=== PATIENT | male | born 1980 | race Caucasian/White ===

== ENCOUNTER → 2018-12-22 09:16 | Outpatient (CLI) | payer MEDICAID, SELFPAY ==
--- NOTE | 2018-12-22 09:20 | XR_ITS ---
PROCEDURE: XR SHOULDER RT MIN 2V CLINICAL INDICATION: right shoulder pain COMPARISON: No exams were available for comparison FINDINGS: No fracture, dislocation, lytic change, or blastic change evident. No significant degenerative change IMPRESSION: No acute findings. Dictated by: Adan Velez MD 12/22/2018 09:44 Signed by: <Electronically signed by Adan Velez MD in [place]> 12/22/2018 09:46
== END ==
PROVIDERS: PCP Internal Medicine Adolescent Medicine; Visit Provider Orthopaedic Surgery
DX: M25.511 Pain in right shoulder (principal)
CPT/HCPCS: 73030

== ENCOUNTER → 2018-12-28 08:27 | Outpatient (CLI) | payer MEDICAID, SELFPAY ==
--- NOTE | 2018-12-28 08:29 | MR_ITS ---
PROCEDURE: MR SHOULDER RT WO CON CLINICAL INDICATION: shoulder injury Right shoulder pain with palpable abnormality along superior aspect of the shoulder the COMPARISON: XR SHOULDER RT MIN 2V from 12/22/2018 TECHNIQUE: Routine multiplanar multi echo sequences are performed without gadolinium enhancement. FINDINGS: There is an abnormal oval area of signal intensity in the subcutaneous tissues along the superior and posterior aspect of the shoulder.. This is just along the superior and posterior aspect of the a chromium superficial to the deltoid muscle. This has heterogeneous increased T1 and increased T2 signal corresponding to the palpable abnormality measuring 4 cm longitudinal and 1.5 cm deep and 4 cm anterior to posterior. The muscle plane is preserved the. This maintains increased T2 signal on the STIR images. The margins are somewhat ill-defined. There is a type 2 acromion with subacromial stenosis. There is thickening of the supraspinatus tendon with increased T2 signal distally consistent with tendinopathy/tendinosis. The infraspinatus, subscapularis, and teres minor tendons are intact. Glenoid labrum has an unremarkable appearance. There is a small amount of fluid in the anterior aspect of the shoulder joint. The bicipital tendon is in place. No bony abnormalities are evident. IMPRESSION: 1. Ill-defined soft tissue mass in the subcutaneous tissues posterior to the distal and posterior aspect of the a chromium. Signal characteristics are more typical for hemorrhage with increased T1 and increased T2 signal. This does not demonstrate fat suppression. Follow-up is recommended. A neoplastic process such as a liposarcoma is felt to be less likely but not totally excluded. If this does not resolve then, fine needle aspiration could be performed with ultrasound guidance for cytologic diagnosis 2. Tendinopathy/tendinosis of the supraspinatus tendon with subacromial stenosis and type 2 acromion Dictated by: Adan Velez MD 12/30/2018 11:44 Signed by: <Electronically signed by Adan Velez MD in [place]> 12/30/2018 11:44
== END ==
PROVIDERS: PCP Internal Medicine Adolescent Medicine; Visit Provider Orthopaedic Surgery
DX: S46.009A Unspecified injury of muscle(s) and tendon(s) of the rotator cuff of unspecified shoulder, initial encounter (principal)
CPT/HCPCS: 73221

== ENCOUNTER → 2019-01-12 08:58 | Outpatient (CLI) | payer MEDICAID, SELFPAY ==
--- NOTE | 2019-01-12 09:00 | US_ITS ---
PROCEDURE: US BIOPSY GUIDANCE CLINICAL INDICATION: mass Right shoulder mass COMPARISON: MR SHOULDER RT WO CON from 12/28/2018 FINDINGS: Technique: Following obtaining informed consent under aseptic conditions and local anesthesia with 1 percent buffered lidocaine 3 passes were made into the right shoulder mass with sonographic guidance with a 21 gauge needle. Specimen was given to cytology. The patient tolerated the procedure well without evidence of immediate complication. Cytology: Negative for malignant cells. Wallace adipocytes present consistent with lipoma IMPRESSION: Uneventful ultrasound-guided fine needle aspiration of right shoulder mass consistent with a lipoma Dictated by: Adan Velez MD 01/14/2019 12:45 Electronically signed by Adan Velez MD in [place] 01/18/2019 12:00
== END ==
PROVIDERS: PCP Internal Medicine Adolescent Medicine; Visit Provider Orthopaedic Surgery
DX: D17.1 Benign lipomatous neoplasm of skin and subcutaneous tissue of trunk (principal); M25.511 Pain in right shoulder; M79.89 Other specified soft tissue disorders
CPT/HCPCS: 10005; 76942

== ENCOUNTER → 2019-05-17 16:38 | Outpatient (CLI) | payer OTHER, SELFPAY ==
[2019-05-17 17:04] LABS: Basophils % 0.6 % (0.1-2.0); Eosinophils # 0.2 K/mm3 (0.0-0.4); Eosinophils % 2.7 % (0.1-12.0); Hematocrit 48.3 % (42.0-52.0); Hemoglobin 16.5 g/dL (14.1-18.0); Lymphocytes # 2.1 K/mm3 (0.7-4.5); Mean Corpuscular HGB Conc 34.1 g/dL (31.8-35.4); Mean Corpuscular Hemoglobin 28.7 pg (27.0-31.2); Mean Corpuscular Volume 84.1 fl (80-94); Mean Platelet Volume 7.2 fl (7.4-10.4); Monocytes # 0.6 K/mm3 (0.1-1.0); Monocytes % 9.5 % (1.7-9.3); Neutrophils # 3.3 K/mm3 (1.8-7.8); Neutrophils % 53.2 % (37.0-80.0); Platelet Count 313 K/mm3 (142-424); Red Blood Count 5.75 M/mm3 (4.60-6.20); Red Cell Distribution Width 13.6 % (11.5-17.5); White Blood Count 6.2 K/mm3 (4.8-10.8)
[2019-05-17 18:17] LABS: Alanine Aminotransferase 45 U/L (12-78); Albumin Level 3.9 gm/dL (3.4-5.0); Albumin/Globulin Ratio 1.3 (1.1-1.8); Alkaline Phosphatase 87 U/L (46-116); Anion Gap 11.7 mEq/L (5-15); Aspartate Amino Transferase 21 U/L (15-37); Bilirubin,Total 0.6 mg/dL (0.2-1.0); Blood Urea Nitrogen 10 mg/dL (7-18); Calcium 8.6 mg/dL (8.5-10.1); Carbon Dioxide 28 mmol/L (21.0-32.0); Chloride 105 mmol/L (98-107); Creatinine,Serum 1.02 mg/dL (0.70-1.30); Estimated Glomerular Filt Rate 81 ml/min (>60); GFR (African American) 98 ML/MIN (>60); Globulin 2.9 gm/dl (1.3-3.2); Glucose 70 mg/dL (74-106); Potassium 3.7 mmoL/L (3.5-5.1); Sodium 141 mmol/L (136-145); Total Protein,Serum 6.8 gm/dL (6.4-8.2); Uric Acid 7.3 mg/dL (2.6-7.2)
== END ==
PROVIDERS: Visit Provider Internal Medicine Adolescent Medicine
DX: M1A.029 Idiopathic chronic gout, unspecified elbow (principal)
CPT/HCPCS: 36415; 80053; 84550; 85025

== ENCOUNTER → 2019-06-15 16:57 | Outpatient (CLI) | payer OTHER, SELFPAY ==
[2019-06-15 18:08] LABS: Uric Acid 5.4 mg/dL (2.6-7.2)
== END ==
PROVIDERS: Visit Provider Internal Medicine Adolescent Medicine
DX: M10.9 Gout, unspecified (principal)
CPT/HCPCS: 36415; 84550

== ENCOUNTER → 2019-08-13 13:03 | Outpatient (CLI) | payer OTHER, SELFPAY ==
--- NOTE | 2019-08-13 13:03 | MR_ITS ---
PROCEDURE: MR KNEE RT WO CON CLINICAL INDICATION: knee injury Lateral and posterior knee pain following injury COMPARISON: XR KNEE RT 3V from 07/23/2019 TECHNIQUE: Routine multiplanar multi echo sequences are performed without gadolinium enhancement. FINDINGS: There is increased T2 signal involving the inferior aspect of the anterior cruciate ligament consistent with sprain or partial tear. PCL appears intact as do the collateral ligaments, patellar tendon, and quadriceps tendon. No obvious meniscal tear. Patellar cartilage appears intact. There is only a small amount of fluid in the knee joint. There is a small area of increased T2 signal involving the posterior aspect of the lateral femoral condyle. IMPRESSION: 1. Partial tear versus sprain of the ACL. 2. Small area of increased T2 signal involves the posterior aspect of the lateral femoral condyle and may be due to small bone bruise. Dictated by: Adan Velez MD 08/14/2019 10:45 Electronically signed by Adan Velez MD in [place] 08/14/2019 10:45
== END ==
PROVIDERS: PCP Internal Medicine Adolescent Medicine; Visit Provider Orthopaedic Surgery
DX: S89.91XA Unspecified injury of right lower leg, initial encounter (principal)
CPT/HCPCS: 73721

== ENCOUNTER 2019-08-30 08:00 | Outpatient (RCR) | payer OTHER, SELFPAY ==
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
== END 2019-08-30 08:05 | disposition home or self-care (01) ==
LOC: PT 08:00
PROVIDERS: Visit Provider Orthopaedic Surgery
DX: S89.91XD Unspecified injury of right lower leg, subsequent encounter (principal); S83.511D Sprain of anterior cruciate ligament of right knee, subsequent encounter; Y99.0 Civilian activity done for income or pay
CPT/HCPCS: 97010; 97014; 97035; 97110; 97163; G0283

== ENCOUNTER 2020-03-05 15:31 | Emergency (ER) | payer OTHER, SELFPAY ==
[2020-03-05 15:58] VITALS: BP 123/81; PULSE 83; RESP 20; TEMP 36.6; O2SAT 99; BMI 30.1
--- NOTE | 2020-03-05 16:13 | HMH.EDUTC ---
[facility] [place] Disposition Clinical Impression: Laceration of left thumb Qualifiers: Encounter type: initial encounter Damage to nail status: without damage Foreign body presence: without foreign body Qualified Code(s): S61.012A - Laceration without foreign body of left thumb without damage to nail, initial encounter Disposition: Home, Self-Care Condition on Discharge: Good Instructions: How to Care for a Laceration After Repair, DI for Laceration Repair -- Simple Additional Instructions: Keep the wound clean and dry. Keep a dressing on it if you are going to be getting it dirty. Watch the for signs of infection, such as redness, swelling, drainage, fever. etc. Take tylenol or ibuprofen for pain. Follow up with your regular doctor. Return in 10 days to have the sutures removed. GO TO THE ER FOR ANY WORSENING SYMPTOMS OR CONCERNS. Prescriptions: cephALEXin [Keflex 500mg Cap] 500 mg PO Q6H 7 Days #28 cap Transmission Status: Received by [id number] Referrals: Olayinka Miguel MD [Primary Care Provider] - Time of Disposition: 16:56 Medical Decision Making - Medical Records Medical records reviewed: No: I reviewed the patient's medical records. - Juancarlos Inquiry Pt receiving controlled substance: No Vital Signs: 03/05/20 15:58 03/05/20 16:58 Temperature 97.9 F 97.9 F Temperature Source Oral Pulse Rate 83 Pulse Rate [Right Brachial] 83 Respiratory Rate 20 20 Blood Pressure 123/81 Blood Pressure [Right Arm] 123/81 Blood Pressure Mean [Right Arm] 95 Blood Pressure Source [Right Arm] Automatic Cuff Blood Pressure Position [Right Arm] Sitting 02 Sat by Pulse Oximetry 99 Oxygen Delivery Method Room Air Orders (Tests/Meds): ED MEDICATIONS Discontinued Medications Generic Name Dose Route Start Last Admin Trade Name Freq PRN Reason Stop Dose Admin Tetanus/Reduced Diphtheria/Acell Pertussis 0.5 ml 03/05/20 16:03 03/05/20 16:25 Tet/Diphth/Pert-Adult 0.5ml Syringe IM 03/05/20 16:04 0.5 ml .ONCE ONE Administration [facility] [place] HPI - General Stated complaint: AO [id number] @1430 lac to L thumb Time Seen by Provider: 03/05/20 16:13 Mode of Arrival: Ambulatory Source of Information: Patient Limitations: No Limitations Description of Symptoms (Recalled from Triage Doc. 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 UNKNOWN STATUS OF TETANUS VACCINE HEENT Symptoms (Recalled from RN notes): No Resp Symptoms (Recalled from RN notes): No Skin Symptoms (Recalled from RN notes): Yes MS Symptoms (Recalled from RN notes): No Functional Status (Recalled from RN notes): WNL - History of Present Illness Provider Complaint: He states that he was cutting a piece of plastic when the knife slipped and he cut his left thumb. His tetanus immunization is not up to date. - Related Data Home Medications Medication Instructions Recorded Confirmed allopurinol 100 mg tablet 100 mg PO DAILY 08/01/19 03/05/20 indomethacin 50 mg capsule 50 mg PO BID 08/01/19 03/05/20 Previous Rx's Medication Instructions Recorded cephALEXin [Keflex 500mg Cap] 500 mg PO Q6H 7 Days #28 cap 03/05/20 Allergies Allergy/AdvReac Type Severity Reaction Status Date / Time No Known Allergies Allergy Verified 09/25/19 13:39 - Worker's Comp Is this a Worker's Comp case?: No [facility] History - Hepatitis A Screen Drug use history?: No High risk sexual behaviors?: No History of sexually transmitted infection?: No Currently employed?: No Childcare worker?: No Do you have indoor plumbing?: Yes Do you have electricity?: Yes Attestation statement:: This patient has been screened for Hepatitis A risk factors. I have reviewed the patient's past medical history: Yes Medical History: Denies:: Cancer, Diabetes Mellitus Type 1, Diabetes Mellitus Type 2, Hypertension, MRSA Other Medical History: Reports: Other Comment: psoriasis Other [place]
[2020-03-05 16:58] VITALS: BP 123/81; PULSE 83; RESP 20; TEMP 36.6; O2SAT 99
== END 2020-03-05 17:00 | disposition home or self-care (01) ==
PROVIDERS: Emergency Provider Nurse Practitioner Family; PCP Internal Medicine Adolescent Medicine
DX: S61.012A Laceration without foreign body of left thumb without damage to nail, initial encounter (principal); W26.0XXA Contact with knife, initial encounter; Y92.019 Unspecified place in single-family (private) house as the place of occurrence of the external cause; Z23 Encounter for immunization; F17.290 Nicotine dependence, other tobacco product, uncomplicated
CPT/HCPCS: 12001; 90471; 90715; 99201

== ENCOUNTER 2020-05-14 09:04 | Emergency (ER) | payer OTHER, SELFPAY ==
[2020-05-14 09:05] VITALS: BP 134/88; PULSE 93; RESP 14; TEMP 36.6; O2SAT 98; BMI 31.5
--- NOTE | 2020-05-14 09:31 | HMH.EDUTC ---
[facility] [place] Disposition Clinical Impression: Viral syndrome, Exposure to COVID-19 virus Disposition: Home, Self-Care Condition on Discharge: Good Instructions: DI for COVID-19 (Suspected or Confirmed ), Preventing the Spread of Coronavirus Discharge Instructions Additional Instructions: Drink plenty of fluids. Take tylenol for pain or fever. Return if you begin to have difficulty breathing. Follow up with your regular doctor. GO TO THE ER FOR ANY WORSENING SYMPTOMS Prescriptions: Ondansetron [Zofran 4mg ODT] 4 mg PO Q8HP PRN #12 tab.rapdis PRN Reason: Nausea Transmission Status: Received by [facility] # Azithromycin [Z-Prashant 250mg Tab*] 250 mg PO UD DOSE PK #6 tab Transmission Status: Received by [facility] # Referrals: Olayinka Miguel MD [Primary Care Provider] - Forms: Work/School Release Time of Disposition: 09:34 Medical Decision Making - Medical Records Medical records reviewed: No: I reviewed the patient's medical records. - Juancarlos Inquiry Pt receiving controlled substance: No Vital Signs: 05/14/20 09:05 05/14/20 09:40 Temperature 97.9 F 97.9 F Temperature Source Oral Oral Pulse Rate 93 H Pulse Rate [Right] 93 H Respiratory Rate 14 14 Blood Pressure 134/88 Blood Pressure [Right Arm] 134/88 Blood Pressure Mean [Right Arm] 103 02 Sat by Pulse Oximetry 98 Orders (Tests/Meds): ORDERS Category Date Time Status Covid-19 Nasal PCR ([facility]) Routine Lab 05/14/20 09:20 Received [facility] [place] HPI - General Stated complaint: Diarrhea, vomiting Time Seen by Provider: 05/14/20 09:31 Mode of Arrival: Ambulatory Source of Information: Patient Description of Symptoms (Recalled from Triage Doc. by RN): pt c/o fever, diarrhea,chills, fatigue that started last night HEENT Symptoms (Recalled from RN notes): No Resp Symptoms (Recalled from RN notes): No Skin Symptoms (Recalled from RN notes): No MS Symptoms (Recalled from RN notes): No Functional Status (Recalled from RN notes): wnl - History of Present Illness Provider Complaint: He states that for the past 2 days he's had diarrhea, gi upset, and cough. He denies any known exposure to covid, but he states that he has the symptoms of covid-19 and he would like to be tested. - Related Data Home Medications Medication Instructions Recorded Confirmed allopurinol 100 mg tablet 100 mg PO DAILY 08/01/19 03/05/20 indomethacin 50 mg capsule 50 mg PO BID 08/01/19 03/05/20 Previous Rx's Medication Instructions Recorded cephALEXin [Keflex 500mg Cap] 500 mg PO Q6H 7 Days #28 cap 03/05/20 Azithromycin [Z-Prashant 250mg Tab*] 250 mg PO UD DOSE PK #6 tab 05/14/20 Ondansetron [Zofran 4mg ODT] 4 mg PO Q8HP PRN #12 tab.rapdis 05/14/20 Allergies Allergy/AdvReac Type Severity Reaction Status Date / Time No Known Allergies Allergy Verified 05/14/20 09:12 - Worker's Comp Is this a Worker's Comp case?: No Is this an H Worker's Comp?: No Is this a [place] Worker's Comp?: No [facility] History - Hepatitis A Screen Drug use history?: No High risk sexual behaviors?: No History of sexually transmitted infection?: No Currently employed?: No Childcare worker?: No Do you have indoor plumbing?: Yes Do you have electricity?: Yes Attestation statement:: This patient has been screened for Hepatitis A risk factors. I have reviewed the patient's past medical history: Yes Medical History: Denies:: Cancer, Diabetes Mellitus Type 1, Diabetes Mellitus Type 2, Hypertension, MRSA Other Medical History: Reports: Other Comment: psoriasis Other Surgeries: Yes: Appendectomy, Cholecystectomy, Hernia Repair Amputation: No Fractures: No - Social History Smoking Status: Former smoker Tobacco Type: smokeless tobacco # Packs/Day (cigarettes): 0 Alcohol Intake: never Alcohol Intake Frequency:: holidays/special occasions only Occupational Status: other Housing: house Household Members: family Family Hx:: No signific
[2020-05-14 09:40] VITALS: BP 134/88; PULSE 93; RESP 14; TEMP 36.6; O2SAT 98
--- NOTE | 2020-05-14 14:27 | PC.NURSE ---
patient notified of positive covid results
== END 2020-05-14 09:41 | disposition home or self-care (01) ==
PROVIDERS: Emergency Provider Nurse Practitioner Family; PCP Internal Medicine Adolescent Medicine
DX: U07.1 COVID-19 (principal); F17.290 Nicotine dependence, other tobacco product, uncomplicated
CPT/HCPCS: 99202; G0463; U0003

== ENCOUNTER 2020-12-21 20:09 | Emergency (ER) | payer OTHER, SELFPAY ==
[2020-12-21 20:11] VITALS: BP 146/95; PULSE 75; RESP 14; TEMP 36.6; O2SAT 98; BMI 38.8
--- NOTE | 2020-12-21 20:17 | ECG_ITS ---
APPROVED REPORT Exam: Resting ECG HR:79 bpm ECG Measurements Heart Rate 79 AXES OH 158 P 71 QRSd 100 QRS -16 QT 370 T 41 QTc 424 Conclusion Normal sinus rhythm with sinus arrhythmia Normal ECG Electronically signed by : Olayinka Miguel MD 12/24/2020 11:51:20
--- NOTE | 2020-12-21 20:17 | XR_ITS ---
PROCEDURE INFORMATION: Exam: XR Chest Exam date and time: 12/21/2020 8:17 PM Age: 40 years old Clinical indication: Sternal or substernal pain; Patient HX: Chest pain for 2 days. TECHNIQUE: Imaging protocol: XR of the chest. Views: 2 views. COMPARISON: CR XR CHEST PORTABLE 07/23/2019 11:21 PM FINDINGS: Lungs: Unremarkable. No consolidation. Pleural spaces: Unremarkable. No pleural effusion. No pneumothorax. Heart/Mediastinum: Unremarkable. No cardiomegaly. Bones/joints: Unremarkable. IMPRESSION: No acute findings.
[2020-12-21 20:28] LABS: Basophils % 0.6 % (0.1-2.0); Eosinophils # 0.2 K/mm3 (0.0-0.4); Hematocrit 49.7 % (42.0-52.0); Hemoglobin 17.3 g/dL (14.1-18.0); Lymphocytes # 2.1 K/mm3 (0.7-4.5); Lymphocytes % 29.6 % (10-50); Mean Corpuscular HGB Conc 34.9 g/dL (31.8-35.4); Mean Corpuscular Hemoglobin 28.8 pg (27.0-31.2); Mean Corpuscular Volume 82.6 fl (80-94); Mean Platelet Volume 7.1 fl (7.4-10.4); Monocytes # 0.5 K/mm3 (0.1-1.0); Monocytes % 7.6 % (1.7-9.3); Neutrophils # 4.1 K/mm3 (1.8-7.8); Neutrophils % 59.2 % (37.0-80.0); Platelet Count 303 K/mm3 (142-424); Red Blood Count 6.01 M/mm3 (4.60-6.20); Red Cell Distribution Width 14.1 % (11.5-17.5); White Blood Count 6.9 K/mm3 (4.8-10.8)
[2020-12-21 20:34] LABS: Alanine Aminotransferase 37 U/L (12-78); Albumin Level 4.7 g/dl (3.5-5.0); Alkaline Phosphatase 61 U/L (38-126); Anion Gap 14.9 mEq/L (5-15); Aspartate Amino Transferase 40 U/L (17-59); Bilirubin,Direct 0.6 mg/dl (0.0-0.4); Bilirubin,Indirect 0.3 mg/dL (0.0-0.9); Bilirubin,Total 0.9 mg/dl (0.2-1.3); Bilirubin,Unconjugated 0.3 mg/dL (0.0-1.1); Blood Urea Nitrogen 9 mg/dl (9-20); Calcium 8.9 mg/dl (8.4-10.2); Carbon Dioxide 28 mmol/L (22.0-30.0); Chloride 103 mmol/L (98-107); Creatinine Clearance Estimated 195 mL/min (50-200); Estimated Glomerular Filt Rate 107 ml/min (>60); GFR (African American) 130 ML/MIN (>60); Glucose 96 mg/dl (74-100); Potassium 3.9 mmoL/L (3.5-5.1); Sodium 142 mmol/L (136-145); Total Protein,Serum 7.8 g/dl (6.3-8.2)
[2020-12-21 20:39] LABS: C-Reactive Protein 0.8 mg/L (0-4)
[2020-12-21 20:45] LABS: NT Pro Brain Natriuretic Pep. 31.6 pg/mL (0-125)
[2020-12-21 20:53] LABS: T4 (Thyroxine) 11.2 ug/dl (5.53-11.0)
[2020-12-21 20:54] LABS: Procalcitonin 0.047 ng/mL (0.0-2.0)
[2020-12-21 20:57] LABS: Erythrocyte Sedimentation Rate 1 mm/hr (0-15)
[2020-12-21 21:07] LABS: Thyroid Stimulating Hormone 0.56 uIU/mL (0.465-4.68)
--- NOTE | 2020-12-21 21:08 | HMH.EDCP ---
ED Disposition Clinical Impression: Chest pain Qualifiers: Chest pain type: precordial pain Qualified Code(s): R07.2 - Precordial pain Disposition: Home, Self-Care Condition on Discharge: Good Instructions: DI for Atypical Chest Pain Additional Instructions: see card in am [phone] Referrals: Keith Dyer MD [Primary Care Provider] - - Critical Care Critical Care Time: No Attestation: On 12/21/20, the high probability of a clinically significant, sudden or life threatening deterioration of the following system(s) required my full and direct attention, intervention and personal management. The time I documented below is in addition to time spent performing reported procedures but includes the following listed in this critical care notation. Medical Decision Making - Medical Records Medical records reviewed: Yes: I reviewed the patient's medical records. - Juancarlos Inquiry Pt receiving controlled substance: No Vital Signs: 12/21/20 20:11 Temperature 97.8 F Temperature Source Oral Pulse Rate [Right Brachial] 75 Respiratory Rate 14 Blood Pressure [Right Arm] 146/95 H Blood Pressure Mean [Right Arm] 112 Blood Pressure Source [Right Arm] Automatic Cuff Blood Pressure Position [Right Arm] Sitting 02 Sat by Pulse Oximetry 98 Oxygen Delivery Method Room Air - Lab Data Lab results reviewed: Yes: I reviewed the patient's lab results. Lab Results 12/21/20 20:10: WBC 6.9, RBC 6.01, Hgb 17.3, Hct 49.7, MCV 82.6, MCH 28.8, MCHC 34.9, RDW 14.1, Plt Count 303, MPV 7.1 L, Neut % (Auto) 59.2, Lymph % (Auto) 29.6, Mingo % (Auto) 7.6, Eos % (Auto) 3.0, Baso % (Auto) 0.6, Neut # (Auto) 4.1, Lymph # (Auto) 2.1, Mingo # (Auto) 0.5, Eos # (Auto) 0.2, Baso # (Auto) 0.0 12/21/20 20:10: Sodium 142, Potassium 3.9, Chloride 103, Carbon Dioxide 28, Anion Gap 14.9, BUN 9, Creatinine 0.80, Estimated Creat Clear 195, Estimated GFR 107, Est GFR ( Amer) 130, Glucose 96, Calcium 8.9, Total Bilirubin 0.9, Direct Bilirubin 0.6 H, Conjugated Bilirubin 0.0, Indirect Bilirubin 0.3, Unconjugated Bilirubin 0.3, AST 40, ALT 37, Alkaline Phosphatase 61, C-Reactive Protein 0.8, NT-Pro-B Natriuret Pep 31.6, Total Protein 7.8, Albumin 4.7, TSH 0.56, Thyroxine (T4) 11.2 H 12/21/20 20:10: ESR 1 12/21/20 20:10: Procalcitonin 0.047 12/21/20 20:10: Troponin I < 0.01 12/21/20 20:10: Triglycerides 163 H, Cholesterol 142, LDL Cholesterol Direct 79.42 L, VLDL Cholesterol 33, HDL Cholesterol 34 L, Cholesterol/HDL Ratio 4.2 H Result diagrams: 12/21/20 20:10 12/21/20 20:10 Orders (Tests/Meds): ED MEDICATIONS Discontinued Medications Generic Name Dose Route Start Last Admin Trade Name Freq PRN Reason Stop Dose Admin Aspirin 324 mg 12/21/20 20:17 12/21/20 21:09 Aspirin 81mg Chewable Tablet PO 12/21/20 20:18 324 mg ONCE ONE Administration Ketorolac Tromethamine 30 mg 12/21/20 21:31 12/21/20 21:37 Ketorolac 30mg/Ml Vial IV 12/21/20 21:32 30 mg ONCE ONE Administration Methylprednisolone Sodium Succinate 125 mg 12/21/20 21:31 12/21/20 21:37 Methylprednisolone Sod Succ 125mg Vial IV 12/21/20 21:32 125 mg ONCE ONE Administration ORDERS Category Date Time Status Troponin I Q3H Lab 12/22/20 00:45 Ordered Troponin I Q3H Lab 12/22/20 03:45 Ordered - Radiology Data #1 Image(s): Chest Image Reviewed: Yes I reviewed the patient's radiology image Preliminary Findings: Normal/NAD - ECG Data Tracing #1 Normal Sinus Rhythm: Yes Ischemic changes: non-specific ST-T wave changes Medical Decision Narrative: pt does not wish to be admitted and is stable and will see card in am Chest Pain HPI - General Chief Complaint: Chest Pain Stated Complaint: cp Time Seen by Provider: 12/21/20 20:15 Mode of Arrival: Family Vehicle Source of Information: Patient, Medical Record Limitations: No Limitations Description of Symptoms (Recalled from ER Triage Doc. by RN): pt states he has had chest pain that
[2020-12-21 21:48] LABS: Chol/HDL Ratio 4.2 (1-3.5); Cholesterol 142 mg/dl (140-200); HDL Cholesterol 34 mg/dl (40-60); Triglycerides 163 mg/dl (30-150); VLDL Cholesterol 33 mg/dL (0-40)
[2020-12-21 21:58] LABS: Direct LDL Cholesterol 79.42 mg/dL (100-129)
[2020-12-21 22:00] LABS: Troponin I < 0.01 ng/ml (0.00-0.034)
[2020-12-21 22:16] VITALS: BP 138/72; PULSE 73; RESP 16; TEMP 36.7; O2SAT 98
== END 2020-12-21 22:21 | disposition home or self-care (01) ==
PROVIDERS: Emergency Provider Emergency Medicine; PCP Internal Medicine Adolescent Medicine
DX: R07.2 Precordial pain (principal); R20.2 Paresthesia of skin; Z82.49 Family history of ischemic heart disease and other diseases of the circulatory system
CPT/HCPCS: 71046; 80048; 80061; 80076; 83880; 84145; 84436; 84443; 84484; 85025; 85651; 86140; 93005; 96374; 96375; 99283

== ENCOUNTER → 2020-12-26 07:15 | Outpatient (CLI) | payer SELFPAY | PROVIDERS: PCP Internal Medicine Adolescent Medicine; Visit Provider Nurse Practitioner Family | DX: R07.9 Chest pain, unspecified (principal) | CPT/HCPCS: 75571 ==

== ENCOUNTER → 2020-12-26 07:20 | Outpatient (CLI) | payer OTHER, SELFPAY ==
--- NOTE | 2020-12-26 07:21 | CT_ITS ---
PROCEDURE: CT HEART W CALCIUM SCORE CLINICAL HISTORY: eval for cad COMPARISON: CT ABDPELW/O CT ABD PELVIS W/O CONTRAST from 01/30/2017 TECHNIQUE: Axial images obtained with sagittal and coronal reformats. All CT scans at the facility use one or more dose reduction, viz: automated exposure control, ma/kV adjustment per patient size (including targeted exams where dose is matched to indication, i.e. head), or iterative reconstruction technique. FINDINGS: The coronary artery calcium score is 0. No identifiable calcific atherosclerotic plaque with very low cardiovascular disease risk. There is a 14 mm lobulated hypodensity in the hepatic dome centrally consistent with a hepatic cyst not significantly changed IMPRESSION: No identifiable calcific atherosclerotic plaque with very low cardiovascular disease risk Dictated by: Adan Velez MD 12/26/2020 08:07 Adan Velez MD in [place] 12/26/2020 08:07
--- NOTE | 2020-12-26 07:21 | CA_ITS ---
APPROVED REPORT EXAM: Comprehensive 2D, Doppler, and color-flow Echocardiogram Certified Welder: Annalisa Sevilla RVT Ht: 5 ft 7 in Wt: 215lbs BSA: 2.09 BP: 126/82 mmHg Indications: CP,ABN EKG,FAMILY HX HD 2D Dimensions LVOT 2.03 cm (M/F) 1.5-2.5 LA Volume 25.40 mL LA Volume Index 12.21 mL/m2 (M/F) 16-34 M-Mode Dimensions RVDd 2.11 cm (0.9-2.6) LA Diam 3.78 cm (1.9-4.0) LVDd 4.94 cm (3.5-5.7) Ao Diam 2.98 cm (2.0-3.7) LVDs 3.50 cm (3.5-5.7) IVSd 0.86 cm (0.6-1.1) PWd 0.97 cm (0.6-1.1) EF (Teich) 55.70% FS 29.10% EDV (Teich) 115.00 mL TAPSE 2.11 (<1.7) ESV (Teich) 50.90 mL LV Diastology E Decel Time 233.00 (160-240 msec) E/A Ratio 1.4 MED E' 9.20 (< 7 cm/sec) E'/MED E' Ratio 10.41 (>14) LAT E' 13.70 (<10 cm/sec) E/LAT E' Ratio 6.99 (>14) Aortic Valve AO Peak GR. 5.50 mmHg Mitral Valve MV E Max Jossue. 96.00 (40-130 cm/s) MV A Velocity 67.00 (40-130 cm/s) E/A Ratio 1.42 MV Decel. Time 233.00 (160-240 ms) MV PHT 68.00 ms Pulmonary Valve PV Peak Velocity 63.00 (50-150 cm/s) Tricuspid Valve TR P. Velocity 178.00 cm/s RAP Estimate 10.00 mmHg RVSP 22.70 mmHg Left Ventricle Left atrium is normal size, left ventricle is normal size, there is no concentric left ventricular hypertrophy, visually estimated ejection fraction 55% with no regional wall motion abnormality, diastolic parameters are within normal range. Right Ventricle Right atrium and right ventricle are normal size and contractility. Aortic Valve Aortic valve is grossly normal, there is no aortic stenosis or aortic insufficiency. Mitral Valve Mitral valve is grossly normal, there is trace mitral regurgitation. Tricuspid Valve Tricuspid valve grossly normal, there is trace tricuspid regurgitation, tricuspid regurgitation jet velocity is inadequate for calculation of the right ventricular systolic pressure. Pulmonic Valve Pulmonic valve is poorly visualized. Great Vessels Aortic root is normal size. Pericardium No significant pericardial effusion noted. Conclusion 1. Normal left ventricular size, preserved left ventricular systolic function, visually estimated ejection fraction 55% with no regional wall motion abnormality, diastolic parameters are within normal range. 2. Trace mitral and tricuspid regurgitation. 3. No significant pericardial effusion noted. Electronically signed by : Toby Fernández MD 12/26/2020 10:33:15
== END ==
PROVIDERS: PCP Internal Medicine Adolescent Medicine; Visit Provider Nurse Practitioner Family
DX: R07.2 Precordial pain (principal); R94.31 Abnormal electrocardiogram [ECG] [EKG]; Z13.6 Encounter for screening for cardiovascular disorders; Z82.49 Family history of ischemic heart disease and other diseases of the circulatory system
CPT/HCPCS: 75571; 93306

== ENCOUNTER → 2021-01-02 07:49 | Outpatient (CLI) | payer OTHER, SELFPAY ==
--- NOTE | 2021-01-02 07:50 | CA_ITS ---
APPROVED REPORT Exam: Exercise Treadmill Technologist: Diamond Dixon, Ht: 5 ft 7 in Wt: 213 lbs BSA: 2.08 m2 HR: 55 bpm BP: 101/66 mmHg Rhythm: NSR, NSSTTW Abnormalities inferiorly Medical History Medications: Aspirin,,,,, BisOPROLOL,,,,, Fumarate,,,,, Stress Test Details Test: [place] HR Resting HR: 59 bpm Max Heart Rate (APMHR): 180 bpm Max HR Achieved: 130 bpm Target HR (85% APMHR): 153 bpm % of APMHR: 72 Recovery HR: 79 bpm BP Resting BP: 106/69 mmHg Max BP: 140/80 mmHg Recovery BP: 140.0/80.0 mmHg ECG Resting ECG: NSR, NSSTTW Abnormalities inferiorly Clinical Reason for Termination: Leg Pain Exercise duration: 09:17 min Highest Stage Achieved: Exercise capacity: 10.1 METs Stress ECG Conclusion Normal hemodynamic response to pharmacologic stress. ECG: Non-ischemic Clinical: Non-ischemic Pt exercised total of 9:17, no CP noted. Rare PACs, less than 1.5mm ST segment changes. Submaximal HR. the EKG portion of the exercise treadmill stress test is nondiagnostic as patient did not achieve the target heart rate. Test Summary REST . . . . . . . Sitting REST . . . . . . . Standing REST 04:00 0.0 1.2 59 . 106/ 69 . . Stage 1 01:00 10.0 1.7 80 . . . . Stage 1 02:00 10.0 1.7 86 . . . . Stage 1 03:00 10.0 1.7 95 . 118/ 90 . . Stage 2 01:00 12.0 2.5 98 . . . . Stage 2 02:00 12.0 2.5 99 . . . . Stage 2 03:00 12.0 2.5 102 . 125/ 92 . . Stage 3 01:00 14.0 3.4 115 . . . . Stage 3 02:00 14.0 3.4 119 . . . . Stage 3 03:00 14.0 3.4 118 . 134/ 96 . . Stage 4 00:17 16.0 4.2 123 . . . Stop exercise at 09:17 RECOVERY 01:00 0.0 0.0 87 . . . . RECOVERY 02:00 0.0 0.0 83 . . . . RECOVERY 03:00 0.0 0.0 72 . 140/ 80 . . RECOVERY 04:00 0.0 0.0 76 . 140/ 80 . . RECOVERY 04:45 0.0 0.0 76 . 113/ 70 . . Electronically signed by : Toby Fernández MD 01/02/2021 10:05:37
== END ==
PROVIDERS: PCP Internal Medicine Adolescent Medicine; Visit Provider Nurse Practitioner Family
DX: R07.2 Precordial pain (principal); R94.31 Abnormal electrocardiogram [ECG] [EKG]; Z82.49 Family history of ischemic heart disease and other diseases of the circulatory system
CPT/HCPCS: 93017

== ENCOUNTER 2021-11-24 09:17 | Emergency (ER) | payer OTHER, SELFPAY ==
[2021-11-24 09:45] VITALS: BP 141/81; PULSE 73; RESP 19; TEMP 36.9; O2SAT 99; BMI 30.9
[2021-11-24 09:55] LABS: UTC Strep Screen (Rapid) Negative (Negative)
--- NOTE | 2021-11-24 10:09 | HMH.EDUTC ---
[facility] Disposition Clinical Impression: URI (upper respiratory infection) Qualifiers: URI type: unspecified URI Qualified Code(s): J06.9 - Acute upper respiratory infection, unspecified Disposition: Home, Self-Care Condition on Discharge: Good Instructions: Sore Throat, Amoxicillin Additional Instructions: *Monitor Temp, Over the counter Motrin or Tylenol as directed/as needed Tylenol every 4 hours and Motrin every 6 hours (as long as your family doctor has told you that you can take it) for fever or pain. and straight to ER if unable to lower temp less than 101.0 after medication given *Warm salt water gargles may help to soothe the throat *Throat Lozenges *Warm fluids like tea with honey may help to soothe the throat *Sleep elevated *Humidifier/Vaporizer Your throat swab was sent for culture. Those results are typically sent to your primary care. Be sure to follow up in 2-3 days with your family doctor/primary care physician if no improvement so they can review those result and treat if necessary. If you don?t have a primary care doctor, I recommend you get one but in the mean time, you will have to return to a walk in clinic Follow up IMMEDIATELY for new or worsening symptoms or no Noticeable improvement over the next 48-72 hours. 911 for difficulty breathing or swallowing Prescriptions: Amoxicillin [Amoxicillin 875MG Tab] 875 mg PO Q12H #20 tab Transmission Status: Pending to [facility] #[id number] Referrals: Keith Dyer MD [Primary Care Provider] - As needed Forms: Work/School Release Medical Decision Making - Juancarlos Inquiry Pt receiving controlled substance: No Juancarlos was queried for this patient: No Vital Signs: 11/24/21 09:45 Temperature 98.4 F Temperature Source Oral Pulse Rate [Right Brachial] 73 Respiratory Rate 19 Blood Pressure [Right Arm] 141/81 H Blood Pressure Mean [Right Arm] 101 Blood Pressure Source [Right Arm] Automatic Cuff Blood Pressure Position [Right Arm] Sitting 02 Sat by Pulse Oximetry 99 Oxygen Delivery Method Room Air - Lab Data Lab results reviewed: Yes: I reviewed the patient's lab results. Lab Results 11/24/21 09:34: Strep Scn Rapid Clinic Negative Orders (Tests/Meds): ORDERS Category Date Time Status Strep Screen Confirmation Stat Micro 11/24/21 09:34 Received [facility] HPI - General Stated complaint: sore throat Time Seen by Provider: 11/24/21 10:09 Mode of Arrival: Ambulatory Source of Information: Patient Limitations: No Limitations Description of Symptoms (Recalled from Triage Doc. by RN): PATIENT C/O SORE THROAT X 3 DAYS. EXPOSED TO STREP LAST WEEK HEENT Symptoms (Recalled from RN notes): Yes Resp Symptoms (Recalled from RN notes): No Skin Symptoms (Recalled from RN notes): No MS Symptoms (Recalled from RN notes): No Functional Status (Recalled from RN notes): WNL - History of Present Illness Provider Complaint: Patient states that he was around someone last week that had strep throat State that for the last 3 days his throat has been hurting and continued to get worse States that today it hurt when he would swallow and it was worse so he came in - Related Data Home Medications Medication Instructions Recorded Confirmed Omeprazole [Omeprazole 40mg 40 mg PO DAILY 11/24/21 11/24/21 Capsule] bisoproloL fumarate [Bisoprolol 5 mg PO DAILY 11/24/21 11/24/21 Fumarate] Previous Rx's Medication Instructions Recorded Amoxicillin [Amoxicillin 875MG 875 mg PO Q12H #20 tab 11/24/21 Tab] Allergies Allergy/AdvReac Type Severity Reaction Status Date / Time No Known Allergies Allergy Verified 01/21/21 09:00 - Worker's Comp Is this a Worker's Comp case?: No [facility] History - Hepatitis A Screen Attestation statement:: This patient has been screened for Hepatitis A risk factors. I have reviewed the patient's past medical history: Yes Medical History: Denies:: Cancer, Diabetes Mellitus Type 1, Di
[2021-11-24 10:23] VITALS: BP 132/88; PULSE 76; RESP 19; TEMP 36.8; O2SAT 98
== END 2021-11-24 10:23 | disposition home or self-care (01) ==
PROVIDERS: Emergency Provider Nurse Practitioner; PCP Internal Medicine Adolescent Medicine
DX: J06.9 Acute upper respiratory infection, unspecified (principal)
CPT/HCPCS: 87880; 99212; G0463

== ENCOUNTER 2022-01-06 14:45 | Emergency (ER) | payer OTHER, SELFPAY ==
[2022-01-06 15:00] VITALS: BP 140/92; PULSE 79; RESP 16; TEMP 36.6; O2SAT 96; BMI 30.8
--- NOTE | 2022-01-06 15:14 | EXP.UTC ---
Discharge Plan Disposition Patient Disposition: Home, Self-Care Condition: Good Prescriptions Prescriptions: New sulfamethoxazole-trimethoprim [Bactrim DS] 800-160 mg Tablet 1 tab PO BID Qty: 20 0RF cephalexin [cephalexin] 500 mg capsule 500 mg PO Q6H 10 Days Qty: 40 0RF mupirocin 2 % ointment 1 applic topical TID 7 Days Qty: 1 0RF No Action omeprazole 40 MG capsule,delayed release(DR/EC) 40 mg PO DAILY bisoprolol fumarate 5 MG tablet 5 mg PO DAILY Label Comments: TAKE 1 TABLET BY MOUTH DAILY amoxicillin 875 MG tablet 875 mg PO Q12H Qty: 20 0RF Referrals Follow up/Referrals: Olayinka Miguel MD [Primary Care Provider] - See instructions Activity Restrictions/Add. Instructions Additional Instructions/Restrictions: Apply warm wet compresses to the affected sites three or four times per day for 15 minutes as tolerated. Take the antibiotics as directed and apply the topical antibiotics as directed. Follow up with your regular doctor. GO TO THE ER FOR ANY WORSENING SYMPTOMS OR CONCERNS i Clinical Impressions Clinical Impression: Cellulitis Qualifiers: Site of cellulitis: trunk Site of cellulitis of trunk: abdominal wall Qualified Code(s): L03.311 - Cellulitis of abdominal wall Stand Alone Forms Stand Alone Forms: Work/School Release Instructions Patient Instructions: Cellulitis Discharge ED Provider: Keith Simms [facility] General Stated complaint: spider bite Mode of Arrival: Ambulatory Source of Information: Patient Limitations: No Limitations Time Seen by Provider: 01/06/22 15:21 Description of Symptoms (Recalled from Triage Doc. by RN): pt comes in with c/o spider bite to right side of abdomen. bite happened this am. HEENT Symptoms (Recalled from RN notes): No Resp Symptoms (Recalled from RN notes): No Skin Symptoms (Recalled from RN notes): Yes MS Symptoms (Recalled from RN notes): No Functional Status (Recalled from RN notes): n/a History of Present Illness Provider Complaint: He has a red area on the right side of his abdomen. He first noticed this redness yesterday. He states that since yesterday the redness has got larger and he has began to feel tired. He denies any fever or chills. Related Data Home Medications Medication Instructions Recorded Confirmed bisoprolol fumarate 5 mg tablet 5 mg PO DAILY Hypertension 11/24/21 11/24/21 omeprazole 40 mg capsule,delayed 40 mg PO DAILY GERD 11/24/21 11/24/21 release Previous Rx's Medication Instructions Recorded amoxicillin 875 mg tablet 875 mg PO Q12H #20 tabs 11/24/21 cephalexin 500 mg capsule 500 mg PO Q6H 10 days #40 caps 01/06/22 mupirocin 2 % topical ointment 1 applic topical TID 7 days #1 g 01/06/22 sulfamethoxazole 800 1 tab PO BID #20 tabs 01/06/22 mg-trimethoprim 160 mg tablet (Bactrim DS) Allergies Allergy/AdvReac Type Severity Reaction Status Date / Time No Known Allergies Allergy Verified 01/06/22 15:03 Worker's Comp Is this a Worker's Comp case?: No [facility] Medical History Dizziness Social History Smoking Status: Former smoker alcohol intake: never current occupational status: other Travel in the last 8 weeks: None household members: family housing: house ROS Obtained: Yes All systems reviewed & no additional complaints except as documented Constitutional Constitutional: Reports system reviewed and no additional complaints, except as documented, Denies chills and Denies fever(s) Eyes Eyes: Reports system reviewed and no additional complaints, except as documented ENT Ears, Nose, Mouth, and Throat: Denies sore throat Cardiovascular Cardiovascular: Reports system reviewed and no additional complaints, except as documented and Denies chest pain Respiratory Respiratory: Reports system reviewed and no additional complaints, except as documen
[2022-01-06 15:47] VITALS: BP 140/92; PULSE 79; RESP 16; TEMP 36.6
== END 2022-01-06 15:52 | disposition home or self-care (01) ==
PROVIDERS: Emergency Provider Nurse Practitioner Family; PCP Internal Medicine Adolescent Medicine
DX: L03.311 Cellulitis of abdominal wall (principal)
CPT/HCPCS: 99212; G0463

== ENCOUNTER → 2022-02-01 09:38 | Outpatient (CLI) | payer OTHER, SELFPAY ==
[2022-02-01 10:11] LABS: Basophils # 0.1 K/mm3 (0-0.2); Basophils % 1.5 % (0.1-2.0); Eosinophils # 0.2 K/mm3 (0.0-0.4); Eosinophils % 3.1 % (0.1-12.0); Hematocrit 50.8 % (42.0-52.0); Hemoglobin 16.9 g/dL (14.1-18.0); Lymphocytes # 1.7 K/mm3 (0.7-4.5); Lymphocytes % 30.6 % (10-50); Mean Corpuscular HGB Conc 33.3 g/dL (31.8-35.4); Mean Corpuscular Hemoglobin 29.3 pg (27.0-31.2); Mean Corpuscular Volume 88.2 fl (80-94); Mean Platelet Volume 6.9 fl (7.4-10.4); Monocytes # 0.5 K/mm3 (0.1-1.0); Monocytes % 7.9 % (1.7-9.3); Neutrophils # 3.2 K/mm3 (1.8-7.8); Neutrophils % 56.8 % (37.0-80.0); Platelet Count 310 K/mm3 (142-424); Red Blood Count 5.76 M/mm3 (4.60-6.20); Red Cell Distribution Width 14.4 % (11.5-17.5); White Blood Count 5.7 K/mm3 (4.8-10.8)
[2022-02-01 10:33] LABS: Chloride 105 mmol/L (98-107)
[2022-02-01 10:34] LABS: Potassium 4.4 mmoL/L (3.5-5.1)
[2022-02-01 10:36] LABS: Alanine Aminotransferase 39 U/L (12-78); Albumin Level 4.5 g/dl (3.5-5.0); Alkaline Phosphatase 80 U/L (38-126); Aspartate Amino Transferase 39 U/L (17-59); Bilirubin,Indirect 0.5 mg/dL (0.0-0.9); Bilirubin,Total 0.5 mg/dl (0.2-1.3); Bilirubin,Unconjugated 0.5 mg/dL (0.0-1.1); Blood Urea Nitrogen 8 mg/dl (9-20); Carbon Dioxide 28 mmol/L (22.0-30.0); Cholesterol 148 mg/dl (140-200); Estimated Glomerular Filt Rate 93 ml/min (>60); GFR (African American) 113 ML/MIN (>60); Total Protein,Serum 7.2 g/dl (6.3-8.2); Triglycerides 141 mg/dl (30-150); VLDL Cholesterol 28 mg/dL (0-40)
[2022-02-01 10:37] LABS: Chol/HDL Ratio 4.2 (1-3.5); Glucose 84 mg/dl (74-100); HDL Cholesterol 35 mg/dl (40-60)
[2022-02-01 10:48] LABS: Direct LDL Cholesterol 85.52 mg/dL (100-129)
[2022-02-01 10:54] LABS: Free T4 (Free Thyroxine) 1.05 ng/dl (0.78-2.19)
[2022-02-01 11:42] LABS: Anion Gap 14.4 mEq/L (5-15); Sodium 143 mmol/L (136-145)
== END ==
PROVIDERS: PCP Internal Medicine Adolescent Medicine; Visit Provider Nurse Practitioner
DX: R06.00 Dyspnea, unspecified (principal); E11.9 Type 2 diabetes mellitus without complications; R94.31 Abnormal electrocardiogram [ECG] [EKG]; I63.9 Cerebral infarction, unspecified; I11.9 Hypertensive heart disease without heart failure
CPT/HCPCS: 36415; 80048; 80061; 80076; 84439; 84443; 85025

== ENCOUNTER → 2022-10-27 15:11 | Outpatient (CLI) | payer OTHER, SELFPAY ==
[2022-10-27 19:47] LABS: Basophils % 0.3 % (0.1-2.0); Eosinophils # 0.1 K/mm3 (0.0-0.4); Eosinophils % 1.9 % (0.1-12.0); Hematocrit 49.4 % (42.0-52.0); Lymphocytes # 1.2 K/mm3 (0.7-4.5); Lymphocytes % 23.3 % (10-50); Mean Corpuscular HGB Conc 34.4 g/dL (31.8-35.4); Mean Corpuscular Hemoglobin 28.6 pg (27.0-31.2); Mean Platelet Volume 8.4 fl (7.4-10.4); Monocytes # 0.5 K/mm3 (0.1-1.0); Monocytes % 9.4 % (1.7-9.3); Neutrophils # 3.3 K/mm3 (1.8-7.8); Platelet Count 280 K/mm3 (142-424); Red Blood Count 5.95 M/mm3 (4.60-6.20); Red Cell Distribution Width 13.9 % (11.5-17.5); White Blood Count 5.1 K/mm3 (4.8-10.8)
[2022-10-27 19:49] LABS: Chloride 105 mmol/L (98-107); Sodium 143 mmol/L (136-145)
[2022-10-27 19:51] LABS: Alanine Aminotransferase 49 U/L (12-78); Aspartate Amino Transferase 45 U/L (17-59); Blood Urea Nitrogen 8 mg/dl (9-20); Estimated Glomerular Filt Rate 82 ml/min (>60); GFR (African American) 99 ML/MIN (>60)
[2022-10-27 19:52] LABS: Albumin Level 4.4 g/dl (3.5-5.0); Albumin/Globulin Ratio 1.5 (1.1-1.8); Alkaline Phosphatase 81 U/L (38-126); Bilirubin,Total 0.7 mg/dl (0.2-1.3); Calcium 9.1 mg/dl (8.4-10.2); Carbon Dioxide 25 mmol/L (22.0-30.0); Globulin 2.9 g/dL (1.3-3.2); Glucose 74 mg/dl (74-100); Total Protein,Serum 7.3 g/dl (6.3-8.2)
== END ==
PROVIDERS: PCP Nurse Practitioner; Visit Provider Nurse Practitioner
DX: R19.7 Diarrhea, unspecified (principal)
CPT/HCPCS: 80053; 85025

== ENCOUNTER 2023-05-31 09:07 | Outpatient (CLI) | payer OTHER, SELFPAY ==
[2023-05-31 09:31] LABS: Basophils % 0.7 % (0.1-2.0); Eosinophils # 0.2 K/mm3 (0.0-0.4); Hematocrit 49.2 % (42.0-52.0); Hemoglobin 17.3 g/dL (14.1-18.0); Lymphocytes # 1.3 K/mm3 (0.7-4.5); Lymphocytes % 25.3 % (10-50); Mean Corpuscular HGB Conc 35.3 g/dL (31.8-35.4); Mean Corpuscular Hemoglobin 29.8 pg (27.0-31.2); Mean Corpuscular Volume 84.6 fl (80-94); Mean Platelet Volume 6.8 fl (7.4-10.4); Monocytes # 0.4 K/mm3 (0.1-1.0); Monocytes % 7.8 % (1.7-9.3); Neutrophils # 3.1 K/mm3 (1.8-7.8); Neutrophils % 62.2 % (37.0-80.0); Platelet Count 259 K/mm3 (142-424); Red Blood Count 5.81 M/mm3 (4.60-6.20); Red Cell Distribution Width 13.9 % (11.5-17.5)
[2023-05-31 10:06] LABS: Chloride 106 mmol/L (98-107); Sodium 140 mmol/L (136-145)
[2023-05-31 10:08] LABS: Alanine Aminotransferase 44 U/L (12-78); Aspartate Amino Transferase 35 U/L (17-59); Blood Urea Nitrogen 10 mg/dl (9-20); Estimated Glomerular Filt Rate 92 ml/min (>60); GFR (African American) 111 ML/MIN (>60)
[2023-05-31 10:09] LABS: Albumin Level 4.1 g/dl (3.5-5.0); Alkaline Phosphatase 70 U/L (38-126); Bilirubin,Direct 0.6 mg/dl (0.0-0.4); Bilirubin,Indirect 0.1 mg/dL (0.0-0.9); Bilirubin,Total 0.7 mg/dl (0.2-1.3); Calcium 8.7 mg/dl (8.4-10.2); Carbon Dioxide 27 mmol/L (22.0-30.0); Cholesterol 134 mg/dl (140-200); Glucose 89 mg/dl (74-100); Magnesium 2.1 mg/dl (1.6-2.3); Total Protein,Serum 6.7 g/dl (6.3-8.2); Triglycerides 109 mg/dl (30-150); VLDL Cholesterol 22 mg/dL (0-40)
[2023-05-31 10:10] LABS: Chol/HDL Ratio 4.3 (1-3.5); HDL Cholesterol 31 mg/dl (40-60)
[2023-05-31 10:24] LABS: Free T4 (Free Thyroxine) 1.37 ng/dl (0.78-2.19)
[2023-05-31 10:26] LABS: Direct LDL Cholesterol 87.12 mg/dL (100-129)
[2023-05-31 10:39] LABS: Thyroid Stimulating Hormone 0.55 uIU/mL (0.465-4.68)
== END 2023-05-31 23:59 ==
LOC: LAB 09:08
PROVIDERS: PCP Internal Medicine Adolescent Medicine; Visit Provider Nurse Practitioner Family
DX: I10 Essential (primary) hypertension (principal); R94.31 Abnormal electrocardiogram [ECG] [EKG]; Z13.220 Encounter for screening for lipoid disorders; Z87.891 Personal history of nicotine dependence
CPT/HCPCS: 36415; 80048; 80061; 80076; 83735; 84439; 84443; 85025

== ENCOUNTER 2024-06-04 10:06 | Outpatient (CLI) | payer OTHER, SELFPAY ==
[2024-06-04 10:37] LABS: Basophils % 0.6 % (0.1-2.0); Eosinophils # 0.2 K/mm3 (0.0-0.4); Eosinophils % 4.2 % (0.1-12.0); Hematocrit 48.9 % (42.0-52.0); Hemoglobin 16.8 g/dL (14.1-18.0); Lymphocytes % 19.5 % (10-50); Mean Corpuscular HGB Conc 34.4 g/dL (31.8-35.4); Mean Corpuscular Hemoglobin 28.7 pg (27.0-31.2); Mean Corpuscular Volume 83.6 fl (80-94); Mean Platelet Volume 8.3 fl (7.4-10.4); Monocytes # 0.7 K/mm3 (0.1-1.0); Monocytes % 12.6 % (1.7-9.3); Neutrophils # 3.3 K/mm3 (1.8-7.8); Neutrophils % 62.7 % (37.0-80.0); Platelet Count 231 K/mm3 (142-424); Red Blood Count 5.85 M/mm3 (4.60-6.20); Red Cell Distribution Width 13.2 % (11.5-17.5); White Blood Count 5.2 K/mm3 (4.8-10.8)
[2024-06-04 11:25] LABS: Alanine Aminotransferase 34 U/L (12-78); Albumin Level 4.4 g/dl (3.5-5.0); Alkaline Phosphatase 55 U/L (38-126); Anion Gap 12.4 mEq/L (5-15); Aspartate Amino Transferase 36 U/L (17-59); Bilirubin,Direct 0.1 mg/dl (0.0-0.4); Bilirubin,Indirect 0.3 mg/dL (0.0-0.9); Bilirubin,Total 0.4 mg/dl (0.2-1.3); Bilirubin,Unconjugated 0.3 mg/dL (0.0-1.1); Blood Urea Nitrogen 13 mg/dl (9-20); Calcium 9.3 mg/dl (8.4-10.2); Carbon Dioxide 27 mmol/L (22.0-30.0); Chloride 106 mmol/L (98-107); Chol/HDL Ratio 3.8 (1-3.5); Cholesterol 134 mg/dl (140-200); Estimated Glomerular Filt Rate 92 ml/min (>60); GFR (African American) 111 ML/MIN (>60); Glucose 88 mg/dl (74-100); HDL Cholesterol 35 mg/dl (40-60); Magnesium 1.9 mg/dl (1.6-2.3); Potassium 4.4 mmoL/L (3.5-5.1); Sodium 141 mmol/L (136-145); Total Protein,Serum 6.9 g/dl (6.3-8.2); Triglycerides 119 mg/dl (30-150); VLDL Cholesterol 24 mg/dL (0-40)
[2024-06-04 13:46] LABS: Free T4 (Free Thyroxine) 1.26 ng/dl (0.78-2.19)
[2024-06-04 21:03] LABS: Thyroid Stimulating Hormone 0.93 uIU/mL (0.465-4.68)
== END 2024-06-04 23:59 | disposition home or self-care (01) ==
LOC: LAB 10:06
PROVIDERS: PCP Internal Medicine Adolescent Medicine; Visit Provider Nurse Practitioner Family
DX: R06.00 Dyspnea, unspecified (principal); I73.9 Peripheral vascular disease, unspecified; I10 Essential (primary) hypertension; R94.31 Abnormal electrocardiogram [ECG] [EKG]
CPT/HCPCS: 36415; 80048; 80061; 80076; 83735; 84439; 84443; 85025

== ENCOUNTER 2024-06-06 08:33 | Outpatient (CLI) | payer OTHER, SELFPAY ==
--- NOTE | 2024-06-06 08:36 | US_ITS ---
FINAL REPORT CLINICAL HISTORY: CLAUDICATION COMPARISON: None FINDINGS: ANKLE-BRACHIAL PRESSURE INDICES Pressure indices are as follows: RIGHT LOWER EXTREMITY: Ankle-brachial pressure index: 1.2 Comments: Normal LEFT LOWER EXTREMITY: Ankle-brachial pressure index: 1.3 Comments: Normal IMPRESSION: No evidence of significant obstructive peripheral vascular disease of the lower extremities Reviewed, Interpreted and Dictated by Jose De Jesus Rachel MD Transcribed by Amalia Alvarez Authenticated and [facility]
--- NOTE | 2024-06-06 08:36 | CA_ITS ---
APPROVED REPORT EXAM: Comprehensive 2D, Doppler, and color-flow Echocardiogram Insurance Sales Producer: ROSE Bauman, RVS Ht: 5 ft 10 in Wt: 220lbs BSA: 2.17 BP: 113/78 mmHg Indications: Abn EKG, Back pain, HTN, ESPINAL 2D Dimensions Left Atrium 2.85 cm M: 3.0 - 4.0 LA Volume 53.90 mL LA Volume Index [id number] mL/m2 (M/F) 16-34 M-Mode Dimensions RVDd 3.31 cm (0.9-2.6) LA Diam 3.32 cm (1.9-4.0) LVDd 5.46 cm (3.5-5.7) LVDs 3.69 cm (3.5-5.7) IVSd 0.72 cm (0.6-1.1) PWd 0.72 cm (0.6-1.1) EF (Teich) 60.10% EPSs 1.02 cm FS 32.40% EDV (Teich) 145.00 mL TAPSE 2.18 (<1.7) ESV (Teich) 57.80 mL LV Diastology E Decel Time 257 (160-240 msec) E/A Ratio 1.32 MED A' 7.60 cm/s LAT A' 7.30 cm/s Aortic Valve COLT Index 0.96 cm2/m2 AoV Peak Jossue. 135.0 (50-130 cm/s) AO Peak GR. 7.30 mmHg AO Mean GR. 4.10 (<5 mmHg) AO VTI 29.9 (18-25 cm) COLT (VTI) 2.15 (2.5-4.5 cm2) Mitral Valve MV A Velocity 60.0 (40-130 cm/s) E/A Ratio 1.32 Pulmonary Valve PV Peak Velocity 82.0 (50-150 cm/s) Tricuspid Valve TR P. Velocity 204.00 cm/s Left Ventricle The left ventricle is normal size. The left ventricular systolic function is normal. The left ventricular ejection fraction is within the normal range. There is normal left ventricular wall thickness. There is normal LV segmental wall motion. The left ventricular diastolic function is normal. LVEF is 55%. Right Ventricle The right ventricle is normal size. The right ventricular systolic function is normal. Atria The left atrium size is normal. The right atrium size is normal. There is no Doppler evidence of interatrial shunt. Aortic Valve The aortic valve opens well. There is no aortic valvular stenosis. No aortic regurgitation is present. Mitral Valve The mitral valve is normal in structure. No evidence of mitral valve stenosis. There is no mitral valve regurgitation noted. Tricuspid Valve Tricuspid valve is grossly normal in structure and function. Mild tricuspid regurgitation. RVSP is 20-25 mmHg. Pulmonic Valve The pulmonary valve is normal in structure. Trace pulmonic regurgitation. Great Vessels The aortic root is normal in size. The ascending aorta is not well-visualized. IVC is normal in size and collapses >50% with inspiration. Pericardium There is no pericardial effusion. Other Information Study Quality: Adequate Conclusion Normal biventricular systolic function. Mild TR. Electronically signed by : Siomara Marinelli MD 06/10/2024 02:55:35
--- NOTE | 2024-06-06 09:20 | CA_ITS ---
APPROVED REPORT Exam: Exercise Treadmill Technologist: Ann Ramirez Ht: 5 ft 10 in Wt: 220 lbs BSA: 2.17 m2 HR: 58 bpm BP: 115/72 mmHg Rhythm: Nsr with T wave inversion inferiorly Medical History Medical History: HTN Medications: Bisoprolol fumarate Allergies: No known drug allergies Cardiac Risk Factors: HTN Stress Test Details Test: Exercise stress testing was performed using a [place] protocol. HR Resting HR: 58 bpm Max Heart Rate (APMHR): 176 bpm Max HR Achieved: 120 bpm Target HR (85% APMHR): 150 bpm % of APMHR: 68 Recovery HR: 73 bpm HR response to stress: Blunted HR response to stress BP Resting BP: 115.0/72.0 mmHg Max BP: 152.0/100.0 mmHg Recovery BP: 123.0/69.0 mmHg BP response to stress: Normal blood pressure response to stress. ECG Resting ECG: NSR, T wave inversion inferiorly Stress EC.[address] depression Arrhythmia: PVCs Clinical Exercise duration: 8:50 min Highest Stage Achieved: Stage 3: 3.4 mph at 14% grade. Exercise capacity: 10.3 METs Stress ECG Conclusion The test was eventually stopped due to leg weakness. No chest pain. Ectopy: Occasional PVCs ST changes: 0.[address] depression Conclusion: Nondiagnostic ECG stress test due to inability to achieve target HR. At the level of HR achieved, no evidence of ischemia on ECG. Further evaluation with alternative diagnostic modality (e.g. CCTA or pharmacologic nuclear stress testing) is suggested if clinically feasible and indicated. Electronically signed by : Siomara Marinelli MD 06/06/2024 11:37:16
--- NOTE | 2024-06-06 16:28 | XR_ITS ---
PROCEDURE INFORMATION: Exam: XR Lumbosacral Spine Exam date and time: 06/06/2024 4:46 PM Age: 44 years old Clinical indication: Low back pain; Additional info: Lumbago right sided TECHNIQUE: Imaging protocol: Radiologic exam of the lumbosacral spine. Views: 4 or 5 views. COMPARISON: CR XR PELVIS 1-2V 07/23/2019 11:20 PM FINDINGS: Bones/joints: Normal. No acute fracture. Normal alignment. Soft tissues: Unremarkable. IMPRESSION: No acute findings.
[2024-06-06 17:15] LABS: Erythrocyte Sedimentation Rate 2 mm/hr (0-15)
[2024-06-06 17:22] LABS: Uric Acid 7.6 mg/dl (3.5-8.5)
[2024-06-06 17:40] LABS: 25-OH Vitamin D, Total 24.5 ng/mL (30-100)
== END 2024-06-06 23:59 | disposition home or self-care (01) ==
PROVIDERS: Nurse Practitioner Family; PCP Internal Medicine Adolescent Medicine; Visit Provider Nurse Practitioner Family
DX: I36.1 Nonrheumatic tricuspid (valve) insufficiency (principal); R06.00 Dyspnea, unspecified; I73.9 Peripheral vascular disease, unspecified; I10 Essential (primary) hypertension; R94.31 Abnormal electrocardiogram [ECG] [EKG]; E66.9 Obesity, unspecified; Z68.32 Body mass index [BMI] 32.0-32.9, adult
CPT/HCPCS: 36415; 72110; 82306; 84550; 85651; 93017; 93018; 93306; 93923

== ENCOUNTER 2024-10-31 08:15 | Outpatient (CLI) | payer OTHER, SELFPAY ==
--- NOTE | 2024-10-31 08:18 | MR_ITS ---
FINAL REPORT TECHNIQUE: Multiplanar MR without contrast CLINICAL HISTORY: LUMBAGO WITH SCIATICA COMPARISON: none FINDINGS: There is mild motion artifact which decreases sensitivity of the exam. Sagittal images show normal vertebral height. Alignment is normal. Marrow signal pattern is unremarkable. L1-2: Unremarkable L2-3: Minimal annular disc bulge. L3-4: Moderate annular disc bulge. Advanced facet arthropathy. Moderate central canal stenosis. Moderate bilateral neural foraminal narrowing. L4-5: Mild annular disc bulge. Moderate facet arthropathy. Mild bilateral neural foraminal narrowing. L5-S1: Minimal annular disc bulge. IMPRESSION: Significant degenerative canal stenosis and neural foraminal narrowing at L3-4. Reviewed, Interpreted and Dictated by Audrey Singh MD Transcribed by Amalia Alvarez Authenticated and [facility]
== END 2024-10-31 23:59 | disposition home or self-care (01) ==
LOC: RAD 08:16
PROVIDERS: PCP Internal Medicine Adolescent Medicine; Visit Provider Nurse Practitioner Family
DX: M48.061 Spinal stenosis, lumbar region without neurogenic claudication (principal); M99.73 Connective tissue and disc stenosis of intervertebral foramina of lumbar region
CPT/HCPCS: 72148

== ENCOUNTER 2024-11-25 03:10 | Emergency (ER) | payer OTHER, SELFPAY ==
[2024-11-25 03:09] LABS: Carboxyhemoglobin 1.8 (0.0-5.0); Lactate Venous 1.6 mmol/L (0.4-2.0); VBG HCO3 23.5 mmol/L (23-30); VBG PCO2 42.2 mmol/L (35-51); VBG PH 7.36 mmol/L (7.31-7.41); VBG PO2 35.2 mmol/L (28-40)
[2024-11-25 03:11] VITALS: BP 116/74; PULSE 92; RESP 19; TEMP 36.6; O2SAT 97; BMI 31.5
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
--- NOTE | 2024-11-25 03:20 | ECG_ITS ---
APPROVED REPORT Exam: Resting ECG HR:82 bpm ECG Measurements Heart Rate 82 AXES NC 178 P 60 QRSd 102 QRS -29 QT 358 T 11 QTc 396 Conclusion SINUS RHYTHM BORDERLINE LEFT AXIS DEVIATION [QRS AXIS < -20] BORDERLINE ECG INTERPRETATION BASED ON A DEFAULT AGE OF 40 YEARS UNCONFIRMED REPORT Electronically signed by : AMERICA DELCID, 11/25/2024 06:31:23
[2024-11-25 03:27] LABS: Chloride 106 mmol/L (98-107)
[2024-11-25 03:28] LABS: Albumin Level 4.5 g/dl (3.5-5.0); Potassium 4.1 mmoL/L (3.5-5.1); Sodium 140 mmol/L (136-145)
[2024-11-25 03:30] LABS: Alanine Aminotransferase 43 U/L (12-78); Anion Gap 10.1 mEq/L (5-15); Aspartate Amino Transferase 51 U/L (17-59); Blood Urea Nitrogen 13 mg/dl (9-20); Carbon Dioxide 28 mmol/L (22.0-30.0); Creatinine Clearance Estimated 133 mL/min (50-200); Creatinine,Serum 1.00 mg/dl (0.66-1.25); Estimated Glomerular Filt Rate 81 ml/min (>60); GFR (African American) 98 ML/MIN (>60)
[2024-11-25 03:31] LABS: Albumin/Globulin Ratio 1.6 (1.1-1.8); Alkaline Phosphatase 71 U/L (38-126); Bilirubin,Total 1.1 mg/dl (0.2-1.3); Calcium 9.7 mg/dl (8.4-10.2); Globulin 2.9 g/dL (1.3-3.2); Glucose 104 mg/dl (74-100); Total Protein,Serum 7.4 g/dl (6.3-8.2)
[2024-11-25 03:32] LABS: Hematocrit 47.1 % (42.0-52.0); Hemoglobin 16.3 g/dL (14.1-18.0); Immature Granulocytes % 0.2 %; Mean Corpuscular HGB Conc 34.6 g/dL (31.8-35.4); Mean Corpuscular Hemoglobin 29.0 pg (27.0-31.2); Mean Corpuscular Volume 83.7 fl (80-94); Nucleated Red Blood Cells % 0 %; Platelet Count 250 K/mm3 (142-424); Red Blood Count 5.63 M/mm3 (4.60-6.20); Red Cell Distribution Width-SD 41.1 fL; White Blood Count 5.6 K/mm3 (4.8-10.8)
[2024-11-25] MEDS: LACTATED RINGERS 1000ML 1,000 ML 999 ML IV (03:38)
[2024-11-25 03:42] VITALS: BP 142/79; PULSE 89; RESP 17; TEMP 36.9; O2SAT 98
== END 2024-11-25 03:57 | disposition home or self-care (01) ==
PROVIDERS: Emergency Provider Emergency Medicine; PCP Nurse Practitioner Family
DX: T67.9XXA Effect of heat and light, unspecified, initial encounter (principal); R06.02 Shortness of breath; R10.9 Unspecified abdominal pain; I10 Essential (primary) hypertension
CPT/HCPCS: 80053; 82375; 82803; 85025; 93005; 96360; 99285; J7120

== ENCOUNTER 2025-04-30 11:34 | Day surgery (SDC) | payer OTHER, SELFPAY ==
[2025-04-30 11:38] VITALS: BP 120/69; PULSE 67; RESP 16; O2SAT 96; BMI 31.5
[2025-04-30 11:57] VITALS: BP 123/70; PULSE 70; RESP 18; O2SAT 98
[2025-04-30] MEDS: DEXAMETHASONE 10MG/ML 1ML VIAL 10 MG (11:57)
[2025-04-30 12:02] VITALS: BP 123/70; PULSE 70; RESP 18; O2SAT 98
--- NOTE | 2025-04-30 12:05 | EXP.PAIN.PRO ---
Procedure Date: 04/30/25 Time: 11:55 Anesthesiologist:: Keith Doan CRNA Complications:: None Pre-procedure Diagnosis:: Degenerative disc lumbar spine. Lumbar radiculopathy. Post-procedure Diagnosis:: Same. Indications for Procedure:: Patient is a pleasant 45-year-old male who comes to clinic today for lumbar epidural steroid injection. Patient describes low lumbar back pain as well as bilateral hip and leg radicular symptoms as constant, dull, aching. Patient rates his pain 7/10. Procedure Details:: Procedure: Lumbar epidural steroid injection under fluoroscopy Informed consent was obtained and the risks and benefits of the procedure were explained to the patient. The patient was taken to the procedure room and noninvasive monitors placed, including noninvasive blood pressure cuff and pulse oximeter. The back was viewed using C-arm Fluoroscopy and prepped using Chloraprep as a cleansing solution and the L4-L5 interspace was palpated. Skin and subcutaneous tissues were anesthetized using lidocaine 1.5% and a 25-gauge needle. After this, an 18-gauge Touhy epidural needle was placed into the L4-L5 interspace and advanced using fluoroscopic guidance and loss of resistance to air until the epidural space was encountered. After confirmation of needle placement in the epidural space, with dye, a solution containing normal saline, 3 mL and dexamethasone 10 mg were incrementally injected into the lumbar epidural space. The patient tolerated the procedure well with no complications. The patient was observed in the Pain Clinic and then discharged home neurologically intact. Plan and Disposition:: Patient was discharged without incident.
[2025-04-30 12:07] VITALS: BP 116/67; PULSE 61; RESP 16; O2SAT 95
== END 2025-04-30 12:08 | disposition home or self-care (01) ==
PROVIDERS: PCP Nurse Practitioner Family; Visit Provider Nurse Anesthetist, Certified Registered
DX: M51.16 Intervertebral disc disorders with radiculopathy, lumbar region (principal); I10 Essential (primary) hypertension; Z90.49 Acquired absence of other specified parts of digestive tract; Z98.890 Other specified postprocedural states; Z79.899 Other long term (current) drug therapy
CPT/HCPCS: 62323; J1100